=== PATIENT | male | born 1980 | race Caucasian/White ===

== ENCOUNTER 2016-09-21 11:19 | Inpatient (IN) | payer OTHER ==
[~2016-09-21] VITALS: Ht 203.2 cm; Wt 151.6 kg
[~2016-09-21 11:19] MED LIST: ALPRAZOLAM ER1 MG PO; ALPRAZOLAM ER2 MG PO; BENADRYL TP; CALAMINE LOTIO120 ML TP; GABAPENTIN400 MG PO; NAPROSYN500 MG PO; NEURONTIN400 MG PO; NOHOMEMEDS; SAPHRIS5 MG SL; SEROQUEL100 MG PO; ULTRAM50 MG PO; XANAX XR2 MG PO; XANAX1 MG PO; XANAX2 MG PO; [UNRECOGNIZED DRUG - OTHER] PO
[2016-09-21 12:26] LABS: BASOPHIL COUNT 0.1 K/uL (0-0.1); EOSINOPHIL COUNT 0.1 K/uL (0-0.3); HEMATOCRIT 46.3 % (38.0-50.0); IMMATURE GRANULOCYTE (%) 0.5 % (0.0-0.7); IMMATURE GRANULOCYTE COUNT 0.1 K/uL; INSTRUMENT ABS NEUTROPHIL CT 5.9 K/uL; LYMPHOCYTE COUNT 2.5 K/uL (1.0-2.8); MCH 31.4 PG (29.0-34.0); MCHC 33.5 G/DL (30.0-36.0); MCV 93.7 FL (86-99); MONOCYTE COUNT 0.8 K/uL (0-0.8); NEUTROPHIL (%) 62.7 % (45-76); NEUTROPHIL COUNT 5.9 K/uL (1.8-6.4); RBC DIS.WIDTH-CV 13.1 % (11.8-14.6); RBC DIS.WIDTH-SD 44.7 % (39-53); RED BLOOD COUNT 4.94 M/uL (4.00-5.50); WHITE BLOOD COUNT 9.3 K/uL (4.1-10.2)
[2016-09-21 12:34] LABS: CHLORIDE 104 mEq/L (99-109); POTASSIUM 4.7 mEq/L (3.7-5.4); SODIUM 138 mEq/L (136-147)
[2016-09-21 12:36] LABS: GLUCOSE 96 mg/dL (70-99)
[2016-09-21 12:37] LABS: ANION GAP 14 MEQ/L (2-14)
[2016-09-21 12:39] LABS: SERUM ETHYL ALCOHOL 79 mg/dL
[2016-09-21 12:40] LABS: GFR ESTIMATE (CALCULATED) > 59 mL/min/; UREA NITROGEN (BUN) 10 mg/dL (9-23)
[2016-09-21 13:41] LABS: MEAN PLAT.VOLUME 9.8 uM^3 (9.0-12.4); PLAT.SUFFICIENCY ADEQUATE; PLATELET COUNT 262 K/uL (156-360)
[2016-09-21 15:21] LABS: ADD MIUA? YES; BILIRUBIN NEGATIVE; BLOOD SMALL; COLOR YELLOW ((YELLOW)); GLUCOSE (STRIP) NEGATIVE; KETONES NEGATIVE; LEUKOCYTES NEGATIVE; NITRITE NEGATIVE; PROTEIN (STRIP) NEGATIVE; SPECIFIC GRAVITY 1.019 (1.000-1.030); UROBILINOGEN 0.2 MG/DL (0.2-1.0)
[2016-09-21 15:34] LABS: BACTERIA NONE SEEN /HPF; EPITHELIAL CELLS RARE /HPF; HYALINE CASTS 0-5 /LPF; MUCUS TRACE /LPF; RED BLOOD CELLS 0-5 /HPF (0-5); UCUL ADDED? NO; WHITE BLOOD CELLS 0-5 /HPF (0-5)
[2016-09-21 15:35] LABS: AMPHETAMINE NEGATIVE (500 ng/mL); BARBITURATES NEGATIVE (200 ng/mL); BENZODIAZEPINES NEGATIVE (150 ng/mL); COCAINE NEGATIVE (150 ng/mL); INTERNAL CONTROLS VALID? YES; METHADONE NEGATIVE (200 ng/mL); METHAMPHETAMINE NEGATIVE (500 ng/mL); OPIATES (MORPHINE) NEGATIVE (100 ng/mL); OXYCODONE NEGATIVE (100 ng/mL); PHENCYCLIDINE NEGATIVE (25 ng/mL); PROPOXYPHENE NEGATIVE (300 ng/mL); THC CANNABINOIDS PRESUMPTIVE POSITIVE (50 ng/mL); TRICYCLIC ANTIDEPRESSANTS PRESUMPTIVE POSITIVE (300 ng/mL)
[2016-09-21 15:36] LABS: ADD MEDTOX COMMENT Y
[2016-09-21] MEDS ORDERED: CLONAZEPAM0.5 MG PO (15:51)
[2016-09-21] MEDS ORDERED: CYCLOBENZAPRINE10 MG PO (15:51)
[2016-09-21] MEDS ORDERED: VENTOLIN HFA18 GM IH (15:51)
[2016-09-21] MEDS ORDERED: SIMVASTATIN20 MG PO (15:52)
[2016-09-21] MEDS ORDERED: GABAPENTIN800 MG PO (15:52)
[2016-09-21] MEDS ORDERED: OMEPRAZOLE40 M1 PO (15:52)
[2016-09-21] MEDS ORDERED: VITAMIN D31000 UNI2 PO (15:52)
[2016-09-21] MEDS ORDERED: SYMBICORT60 INHALAT IH (16:46)
[2016-09-21 16:50] VITALS: BP 138/69
[2016-09-21 17:04] VITALS: BP 138/69
[2016-09-22 07:37] VITALS: BP 127/84
[2016-09-22 15:24] VITALS: BP 129/76
[2016-09-23 07:43] VITALS: BP 124/69
[2016-09-23 15:21] VITALS: BP 131/80
[2016-09-24 07:58] VITALS: BP 140/72
[2016-09-24 16:02] VITALS: BP 146/89
[2016-09-25 07:18] VITALS: BP 112/65
[2016-09-25 15:13] VITALS: BP 133/81
[2016-09-26 07:40] VITALS: BP 110/57
[2016-09-26] MEDS ORDERED: ATIVAN1 MG PO (09:00)
[2016-09-26] MEDS ORDERED: NEURONTIN800 MG PO (09:00)
== END 2016-09-26 10:01 | disposition home or self-care (01) | DRG 885 ==
LOC: EME 11:19 → EDOF 13:03 → 1WEST 13:03 → ENRESERV 16:36 → 1WEST 16:36
PROVIDERS: Emergency Medicine
DX: F31.9 Bipolar disorder, unspecified (principal); F63.81 Intermittent explosive disorder; Z59.0 Homelessness; R45.851 Suicidal ideations; F60.9 Personality disorder, unspecified; Y90.3 Blood alcohol level of 60-79 mg/100 ml; F10.220 Alcohol dependence with intoxication, uncomplicated; E66.3 Overweight; Z68.36 Body mass index [BMI] 36.0-36.9, adult
CPT/HCPCS: 80048; 81003; 84999; 85025; 90837; 94640; 94640 76; 97150 GO; 97166 GO; 99202; 99281; 99285; G0480